=== PATIENT | male | born 1955 | race African-American/Black ===

== ENCOUNTER 2017-02-15 23:57 | Emergency (ER) | payer MEDICARE, MEDICAID ==
[~2017-02-15] VITALS: Ht 177.8 cm; Wt 104.0 kg
[~2017-02-15 23:57] MED LIST: ASPI-1035 PO; SPIR25TA4 PO
[2017-02-16 00:40] LABS: BASOPHILS % 0.6 % (0.0-2.0); EOSINOPHILS % 1.4 % (0.0-5.0); HEMOGLOBIN. 13.2 g/dL (14.0-18.0); LYMPHOCYTES % 14.9 % (20.0-50.0); MEAN CORPUSCULAR HEMOGLOBIN 27.7 pg (28.0-32.0); MEAN CORPUSCULAR HGB CONC 33.9 g/dL (31.0-37.0); MEAN CORPUSCULAR VOLUME 81.8 fL (80.0-94.0); MEAN PLATELET VOLUME 7.5 fl (7.4-10.4); MONOCYTES % 12.5 % (2.0-8.0); NEUTROPHILS % 70.6 % (40.0-76.0); PLATELET 172 x1000/uL (130-400); RED BLOOD CELL COUNT 4.77 mill/uL (4.7-6.1); RED CELL DISTRIBUTION WIDTH 15.2 % (11.6-14.6); WHITE BLOOD COUNT 5.2 x1000/uL (4.5-11.0)
[2017-02-16 00:45] LABS: CHLORIDE 105 mEq/L (98-107); INDEX HEMOLYSI 1 (1-3); INDEX ICTERIC 1 (1-4); INDEX LIPEMIC 1 (1-3)
[2017-02-16 00:54] LABS: ALANINE AMINOTRANSFERASE 20 IU/L (13-61); ALBUMIN 3.6 g/dL (3.4-5.0); ANION GAP 12; CALCIUM 8.8 mg/dL (8.5-10.1); CARBON DIOXIDE 30 mEq/L (21-32); UREA NITROGEN BLOOD 24 mg/dL (7-21); eGFR 44 mL/min (>60)
[2017-02-16] MEDS ORDERED: POTASSIUM CHLORIDE 20MEQ TABLET SR PO ONE (03:00)
[2017-02-16 04:16] VITALS: BP 150/97
== END 2017-02-16 04:20 | disposition home or self-care (01) ==
LOC: ER 23:58
DX: I10 Essential (primary) hypertension (principal); I16.0 Hypertensive urgency; E87.6 Hypokalemia
CPT/HCPCS: 36415; 80053; 85025; 93005; 99285

== ENCOUNTER 2017-02-20 16:36 | Emergency (ER) | payer MEDICARE, MEDICAID ==
[~2017-02-20] VITALS: Ht 182.9 cm; Wt 77.0 kg
[2017-02-20 16:40] VITALS: BP 210/115
== END 2017-02-20 17:21 | disposition left against medical advice (07) ==
LOC: ER 16:36
DX: I10 Essential (primary) hypertension (principal); Z79.82 Long term (current) use of aspirin; Z86.73 Personal history of transient ischemic attack (TIA), and cerebral infarction without residual deficits
CPT/HCPCS: 99283